=== PATIENT | male | born 1990 | race Two or more races ===

== ENCOUNTER 2019-09-04 00:48 | Emergency (ER) | payer SELFPAY ==
[~2019-09-04] VITALS: Ht 170.2 cm; Wt 78.0 kg
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
[2019-09-04] MEDS ORDERED: LIDOCAINE 1%-EPI 1:100,000 20 ML VIAL ONE (01:49)
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
[2019-09-04] MEDS ORDERED: SODIUM BICARBONATE 5 ML VIAL ONE (01:55)
[2019-09-04] MEDS ORDERED: CEPHALEXIN MONOHYDRATE 500 MG CAPSULE PO ONE ×2 (02:00→02:30)
[2019-09-04] MEDS ORDERED: LIDOCAINE 1%-EPI 1:100,000 20 ML VIAL TP ONE (02:00)
[2019-09-04] MEDS ORDERED: SODIUM BICARBONATE 5 ML VIAL MC ONE (02:00)
[2019-09-04] MEDS ORDERED: TDAP [DIPH/PERTUSSIS/TET] 0.5 ML VIAL IM ONE ×2 (02:00→02:30)
[2019-09-04 02:51] VITALS: BP 132/75
--- NOTE | 2019-09-04 02:51 | NUR ---
Patient discharged to home in stable condition. Written and verbal after care instructions given. Patient verbalizes understanding of instruction.
== END 2019-09-04 02:52 | disposition home or self-care (01) ==
LOC: ER 00:49
DX: S01.01XA Laceration without foreign body of scalp, initial encounter (principal); R51 Headache; Z23 Encounter for immunization; V49.59XA Passenger injured in collision with other motor vehicles in traffic accident, initial encounter; Y93.89 Activity, other specified; Y92.488 Other paved roadways as the place of occurrence of the external cause; Y99.8 Other external cause status
CPT/HCPCS: 12002; 70450; 72125; 90471; 90715; 99284; J3490 ×2; L0172

== ENCOUNTER 2019-09-06 14:37 | Emergency (ER) | payer SELFPAY ==
[~2019-09-06] VITALS: Ht 162.6 cm; Wt 78.0 kg
[2019-09-06 14:37] VITALS: BP 131/82
--- NOTE | 2019-09-06 15:09 | NUR ---
clarified order with bebo PEREZ, no head CT. Dc'd to home in stable condition
== END 2019-09-06 15:11 | disposition home or self-care (01) ==
LOC: ER 14:40
DX: S01.01XD Laceration without foreign body of scalp, subsequent encounter (principal); X58.XXXD Exposure to other specified factors, subsequent encounter

== ENCOUNTER 2019-09-11 15:38 | Emergency (ER) | payer MEDICAID ==
[~2019-09-11] VITALS: Ht 172.7 cm; Wt 65.8 kg
[2019-09-11 16:15] VITALS: BP 118/75
== END 2019-09-11 17:55 | disposition home or self-care (01) ==
LOC: ER 15:40
DX: S01.01XD Laceration without foreign body of scalp, subsequent encounter (principal); V49.69XD Unspecified car occupant injured in collision with other motor vehicles in traffic accident, subsequent encounter